=== PATIENT | male | born 1960 | race Caucasian/White ===

== ENCOUNTER 2016-04-24 07:21 | Day surgery (SDC) | payer OTHER ==
[~2016-04-24] VITALS: Ht 172.7 cm; Wt 84.3 kg
[~2016-04-24 07:21] MED LIST: CHOL100062 PO; GLIP-95 PO; LISI10TA2 PO; MTF1000T PO
[2016-04-24] MEDS ORDERED: ATOR20TA38 PO (08:12)
[2016-04-24 08:18] VITALS: Ht 172.7 cm; Wt 84.3 kg
[2016-04-24 08:38] VITALS: BP 148/79; PULSE 58; RESP 12
[2016-04-24 09:34] VITALS: BP 101/63; RESP 20
[2016-04-24] MEDS ORDERED: MIDAZOLAM 1 MG/ML 2 ML INJ ONE ×2 (09:42)
[2016-04-24] MEDS ORDERED: FENTAnyl 50 MCG/ML VIAL ONE (09:42)
--- NOTE | 2016-04-24 22:57 | GILP ---
DATE OF PROCEDURE: NAME OF PROCEDURE: Colonoscopy and polypectomy. PREOPERATIVE DIAGNOSIS: Screening colonoscopy. POSTOPERATIVE DIAGNOSIS: Multiple polyps noted as described below. DESCRIPTION OF PROCEDURE: After the informed written consent was obtained, the patient was asked to lie on the left lateral side. Intravenous anesthesia was given, which included 4 mg Versed and 50 mcg of fentanyl. When the patient became somnolent, the Olympus video colonoscope was introduced in to the rectum and scope was advanced all the way to the cecum. At 35 cm from the anus, there was ev idence of 2 polyps noted adjacent to each other measuring at least 1 cm each in diameter located on a stalk. Polypectomy was performed and both of them were retrieved separately and sent for histopat hology in the same bottle. In the mid transverse colon, there is evidence of another 7 mm polyp on a stalk was noted. Polypectomy was performed. Polyp was retrieved and sent for histopathology. Mi d descending colon showed evidence of a 5 mm polyp on a stalk. This was also removed with a hot sna re doing a polypectomy procedure. Occasional diverticula noted in the descending colon. Rest of th e colon up to cecum appeared normal. On the way out, no additional abnormalities detected except mi nimal external hemorrhoids and, at this time, procedure was terminated. PLAN: Recommend wait for the pathology report. Dictated By: KHARI PEDRAZA/NTS Conf#: [id number] DID#: [id number] CC: KHARI NAVA MD; LARRY TABOR MD;*EndCC*
== END 2016-04-24 10:14 | disposition home or self-care (01) ==
LOC: GIL 07:21
PROVIDERS: ATTEND Internal Medicine Gastroenterology
DX: Z12.11 Encounter for screening for malignant neoplasm of colon (principal); D12.3 Benign neoplasm of transverse colon; D12.2 Benign neoplasm of ascending colon; K64.4 Residual hemorrhoidal skin tags; I10 Essential (primary) hypertension; E11.9 Type 2 diabetes mellitus without complications
CPT/HCPCS: 45385; 82962; 88305; J2250; J3010; Z7610

== ENCOUNTER 2017-02-28 07:07 | Day surgery (SDC) | END 2017-02-28 12:35 | disposition home or self-care (01) ==

== ENCOUNTER 2017-11-13 06:12 | Day surgery (SDC) | END 2017-11-13 11:00 | disposition home or self-care (01) ==